=== PATIENT | female | born 1965 | race Caucasian/White ===

== ENCOUNTER 2024-02-15 18:55 | Emergency (ER) | payer BC, SELFPAY ==
[2024-02-15 18:57] VITALS: BP 102/86; PULSE 70; TEMP 36.7; BMI 28.3
[2024-02-15 19:25] VITALS: O2SAT 95
--- NOTE | 2024-02-15 19:25 | CT_ITS ---
The [address] [address] Patient Name: JEAN DANIEL MRN: [id number] date: 1965 Sex: F Assigned Patient Location: ER Current Patient Location: Accession/Order Number: [id number] Exam Date: 02/15/2024 18:45 Report Date: 02/15/2024 20:53 At the request of: WILMA BLACK Procedure: CT abdomen pelvis w con Indication: Diffuse abdominal pain. Comparison: None Procedure: Axial images were made from the diaphragms through the symphysis pubis. No oral contrast was given prior to scanning. Intravenous contrast was given. Dose reduction techniques were achieved by using automated exposure control and/or adjustment of mA and/or kV according to patient size and/or use of iterative reconstruction technique. Findings: Liver/Biliary System: No liver masses. No intrahepatic biliary dilatation. Common bile duct is mildly dilated at pancreatic head measuring 9 mm. No obstructing lesions are seen in the common bile duct. Please correlate with bilirubin level. Pancreas/Spleen: No evidence of acute pancreatitis. Pancreatic duct is not dilated. No pancreatic masses are seen. No splenomegaly or splenic lesions. Kidneys/Adrenals: Normal symmetrical nephrograms. No renal masses. 3 small left renal nonobstructive stones, 3 mm each. No ureteral stones. No hydronephrosis or hydroureter bilaterally. No adrenal nodules. Aorta/Vessels: No evidence of aortic aneurysm. Patent IVC, renal veins, hepatic veins and portal venous system. Bowel/Fluid/Nodes: Dilated small bowel loops in abdomen and pelvis with feces sign seen within suggestive of small bowel obstruction. Transition point difficult to identify. No pneumatosis. Mesenteric edema is seen in abdomen and pelvis. Surgical sutures are seen in the small bowel. Normal appendix. Small mesenteric lymph nodes are seen, probably reactive. Lung bases: Clear. Other findings: No aggressive osseous lesions are seen. Pelvis: Moderate amount of free fluid in the pelvis. Status post hysterectomy. Unremarkable bladder. No pelvic masses or adenopathy. Other Findings: No aggressive osseous lesions are seen. CT/CT abdomen pelvis w con Impression: 1. Dilated small bowel loops in abdomen and pelvis with feces sign seen within suggestive of small bowel obstruction. Transition point is difficult to identify. No pneumatosis. Moderate amount of free fluid in the pelvis. Mesenteric edema is seen in abdomen and pelvis. 2. Mildly dilated common bile duct measuring 9 mm. No obstructing lesions are seen. Please correlate with bilirubin level. 3. 3 small left renal nonobstructive stones, 3 mm each. No hydronephrosis. 4. Small mesenteric lymph nodes are seen, most likely reactive lymph nodes. Electronically authenticated by: MACARENA POWELL Date: 02/15/2024 20:53
--- NOTE | 2024-02-15 19:26 | ED.ABDPAIN1 ---
HPI - Abdominal Pain General Chief Complaint: Abdominal Pain Stated Complaint: Abdominal Pain Time Seen by Provider: 02/15/24 19:12 Source: patient and EMR Mode of arrival: ambulance Limitations: no limitations History of Present Illness HPI narrative: 58-year-old female presents for abdominal pain. It is in the mid abdomen and it started yesterday and was worse today. She has been dry heaving. No constipation or diarrhea or fever or injury. She has had numerous abdominal surgeries. It does not seem that she is ever had a small bowel obstruction. The pain is severe and continuous. Related Data Home Medications ?Medication ?Instructions ?Recorded ?Confirmed albuterol sulfate 90 mcg/actuation 2 puff inhalation QID PRN 02/15/24 02/15/24 aerosol inhaler shortness of breath or wheezing citalopram 20 mg tablet 20 mg PO DAILY 02/15/24 02/15/24 gabapentin 800 mg tablet 800 mg PO .hs 02/15/24 02/15/24 levofloxacin 500 mg tablet 500 mg PO DAILY 02/15/24 02/15/24 levothyroxine 50 mcg tablet 50 mcg PO DAILY 02/15/24 02/15/24 levothyroxine 75 mcg tablet 75 mcg PO DAILY 02/15/24 02/15/24 omeprazole 40 mg capsule,delayed 40 mg PO AC 02/15/24 02/15/24 release tizanidine 4 mg tablet 4 mg PO .hs PRN muscle spasticity 02/15/24 02/15/24 trazodone 150 mg tablet 150 mg PO .hs 02/15/24 02/15/24 Allergies Allergy/AdvReac Type Severity Reaction Status Date / Time No Known Drug Allergies Allergy Verified 02/15/24 19:01 Review of Systems ROS Narrative A ten point review of systems is negative except as noted above. Exam Narrative Exam Narrative: Nurses note and vital signs reviewed and patient is not hypoxic. General: The patient appears well and in no apparent distress. Patient is resting comfortably on cart. Skin: Warm, dry, no pallor noted. There is no rash noted. Head: Normocephalic, atraumatic Eye: Normal conjunctiva, no drainage Ears, Nose, Mouth, and Throat: oral mucosa is moist. Nares patent. Cardiovascular: Regular Rate and Rhythm Respiratory: Patient is in no distress, no accessory muscle use, lungs are clear to auscultation, no wheezing, rales or rhonchi Back: non-tender GI: Bowel sounds are normal. There is no distention. She has diffuse tenderness. No masses. Musculoskeletal: The patient has no evidence of calf tenderness, no pitting edema, symmetrical pulses noted bilaterally Neurological: A&O, normal speech Psychiatric: Cooperative Constitutional Vital Signs, click to edit/add: Last Vital Signs Temp 98.1 F 02/15/24 18:57 Pulse 80 02/15/24 21:57 Resp 18 02/15/24 21:57 BP 115/86 02/15/24 21:57 Pulse Ox 97 02/15/24 21:57 O2 Del Method Room Air 02/15/24 18:57 Course Vital Signs Vital signs: Vital Signs Temperature 98.1 F 02/15/24 18:57 Pulse Rate 70 02/15/24 18:57 Respiratory Rate 22 H 02/15/24 18:57 Blood Pressure 102/86 02/15/24 18:57 Oxygen Delivery Method Room Air 02/15/24 18:57 Temperature 98.1 F 02/15/24 18:57 Pulse Rate 80 02/15/24 21:57 Respiratory Rate 18 02/15/24 21:57 Blood Pressure 115/86 02/15/24 21:57 Pulse Oximetry 97 02/15/24 21:57 Oxygen Delivery Method Room Air 02/15/24 18:57 MDM - Abdominal Pain MDM Narrative Medical decision making narrative: Small bowel obstruction identified. The patient has a history of gastric bypass and I have spoken to Dr. Whelan. He request transfer to larger facility. The patient request to leave the hospital and I have spoken to Dr. Alexis there who accepts the patient. She is stable and agreeable for transfer. Differential Diagnosis Differential diagnosis: Likely abdominal pain, constipation, diverticulitis, gastroenteritis, pancreatitis and small bowel obstruction Lab Data Attestation: I reviewed the patient's lab results. Labs: Lab Results 02/15/24 02/15/24 Range/Units 19:16 20:08 WBC 7.9 (4.0-11.0) 10^3/uL RBC 3.89 L (4.20-5.40) 10^6/uL Hgb 11.7 L (12.0-16.0) g/dL Hct 36.1 (36.0-48.0) % MCV 92.8 (81.0-99.0) fL MCH 30.1 (26.7-34.0) pg MCHC 32.4 (29.9-35.2) g/dL RDW 13.4 (11.0-15.0) % Plt Count 332 (150-450) 10^3/uL MPV 9.0 L (9.5-13.5) fL Neut % (Auto) 55.2 (43.0-75.0) % Lymph % (Auto) 30.4 (20.5-60.0) % [place] % (Auto) 10.0 (1.7-12.0) % Eos % (Auto) 3.7 (0.9-7.0) % Baso % (Auto) 0.6 (0.2-2.0) % Neut # (Auto) 4.4 (1.4-6.5) 10^3/uL Lymph # (Auto) 2.4 (1.2-3.8) 10^3/uL [place] # (Auto) 0.8 (0.3-0.8) 10^3/uL Eos # (Auto) 0.3 (0.0-0.7) 10^3/uL Baso # (Auto) 0.1 (0.0-0.1) 10^3/uL Abs Immat Gran (auto) 0.01 (0.00-0.03) 10^3/uL Imm/Tot Granulo (auto) 0.1 (0.0-0.5) % Sodium 138 (136-145) mmol/L Potassium 3.7 (3.5-5.1) mmol/L Chloride 103 (98-107) mmol/L Carbon Dioxide 27.7 (21.0-32.0) mmol/L Anion Gap 11.0 BUN 22.0 H (7.0-18.0) mg/dL Creatinine 0.84 (0.55-1.02) mg/dL Est GFR ( Amer) >60 (>=60) Est GFR (Non-Af Amer) >60 (>=60) BUN/Creatinine Ratio 26.2 Glucose 102 (74-106) mg/dL Calcium 9.1 (8.5-10.1) mg/dL Total Bilirubin 0.4 (0.2-1.0) mg/dL Direct Bilirubin 0.1 (0.0-0.2) mg/dL AST 22 (15-37) U/L ALT 31 (14-59) U/L Alkaline Phosphatase 47 (46-116) U/L Total Protein 6.7 (6.4-8.2) g/dL Albumin 3.6 (3.4-5.0) g/dL Globulin 3.1 g/dL Albumin/Globulin Ratio 1.2 Amylase 30 (25-115) U/L Lipase 27.0 (16.0-77.0) U/L Urine Color Lt. yellow (YELLOW) Urine Clarity Clear (CLEAR) Urine pH 7.0 (5.0-9.0) Ur Specific [place] 1.010 (1.005-1.025) Urine Protein Negative (NEG/TRACE) mg/dL Urine Glucose (UA) Negative (NEGATIVE) mg/dL Urine Ketones 15 A (NEGATIVE) mg/dL Urine Occult Blood Negative (NEGATIVE) Urine Nitrite Negative (NEGATIVE) Urine Bilirubin Negative (NEGATIVE) Urine Urobilinogen 0.2 (0.2-1.0) EU/dL Ur Leukocyte Esterase Small A (NEGATIVE) Urine RBC None seen (0-2) #/HPF Urine WBC 2-5 A (NONE SEEN) #/HPF Ur Squamous Epith Cells Few A (NONE/RARE) #/LPF Urine Crystals None seen (None Seen) #/HPF Amorphous Sediment Few Urine Bacteria None seen (NONE SEEN) #/HPF Urine Casts None seen (NONE SEEN) #/LPF Urine Mucus None seen (NONE SEEN) Ur Culture Indicated? No Imaging Data CT scan - abdomen: Radiologist's impression: ITS Impressions Abdomen/Pelvis CT 02/15/24 19:25 Impression: 1. Dilated small bowel loops in abdomen and pelvis with feces sign seen within suggestive of small bowel obstruction. Transition point is difficult to identify. No pneumatosis. Moderate amount of free fluid in the pelvis. Mesenteric edema is seen in abdomen and pelvis. 2. Mildly dilated common bile duct measuring 9 mm. No obstructing lesions are seen. Please correlate with bilirubin level. 3. 3 small left renal nonobstructive stones, 3 mm each. No hydronephrosis. 4. Small mesenteric lymph nodes are seen, most likely reactive lymph nodes. Electronically authenticated by: MACARENA POWELL Date: 02/15/2024 20:53 Abdomen X-Ray 05/03/24 21:42 IMPRESSION: Enteric tube could be advanced 5 to 10 cm for optimal positioning. Electronically authenticated by: ISABEL TAYLOR Date: 02/15/2024 22:02 Discharge Plan Discharge Chief Complaint: Abdominal Pain Clinical Impression: Small bowel obstruction Patient Disposition: [facility] Time of Disposition Decision: 22:28 Discharge Location: [facility] Condition: Good Mode of Transportation: EMS
[2024-02-15] MEDS: MORPHINE SULFATE 4 MG/ML VIAL IV (19:32)
[2024-02-15] MEDS: ONDANSETRON PF 4 MG/2 ML VIAL IV (19:33)
[2024-02-15] MEDS: 0.9 % SODIUM CHLORIDE 1,000 ML 1000 ML IV (19:33)
[2024-02-15 19:35] LABS: Basophils Absolute Auto 0.1 10^3/uL (0.0-0.1); Basophils Percent Auto 0.6 % (0.2-2.0); Eosinophils Absolute Auto 0.3 10^3/uL (0.0-0.7); Eosinophils Percent Auto 3.7 % (0.9-7.0); Hematocrit 36.1 % (36.0-48.0); Hemoglobin 11.7 g/dL (12.0-16.0); Immature Granulocytes Abs Auto 0.01 10^3/uL (0.00-0.03); Immature Granulocytes Pct Auto 0.1 % (0.0-0.5); Lymphocytes Absolute Auto 2.4 10^3/uL (1.2-3.8); Lymphocytes Percent Auto 30.4 % (20.5-60.0); Mean Corpuscular HGB Conc 32.4 g/dL (29.9-35.2); Mean Corpuscular Hemoglobin 30.1 pg (26.7-34.0); Mean Corpuscular Volume 92.8 fL (81.0-99.0); Monocytes Absolute Auto 0.8 10^3/uL (0.3-0.8); Neutrophils Absolute Auto 4.4 10^3/uL (1.4-6.5); Neutrophils Percent Auto 55.2 % (43.0-75.0); Platelet Count 332 10^3/uL (150-450); Red Blood Count 3.89 10^6/uL (4.20-5.40); Red Cell Distribution Width 13.4 % (11.0-15.0); White Blood Count 7.9 10^3/uL (4.0-11.0)
[2024-02-15 19:47] LABS: Alanine Aminotransferase 31 U/L (14-59); Albumin Globulin Ratio 1.2; Albumin Level 3.6 g/dL (3.4-5.0); Alkaline Phosphatase 47 U/L (46-116); Amylase 30 U/L (25-115); Aspartate Amino Transferase 22 U/L (15-37); BUN Creatinine Ratio 26.2; Bilirubin Direct 0.1 mg/dL (0.0-0.2); Bilirubin Total 0.4 mg/dL (0.2-1.0); Calcium 9.1 mg/dL (8.5-10.1); Carbon Dioxide 27.7 mmol/L (21.0-32.0); Chloride 103 mmol/L (98-107); Estimated GFR (African America >60 (>=60); Estimated GFR (Non-African Ame >60 (>=60); Globulin 3.1 g/dL; Glucose 102 mg/dL (74-106); Potassium 3.7 mmol/L (3.5-5.1); Sodium 138 mmol/L (136-145); Total Protein 6.7 g/dL (6.4-8.2)
[2024-02-15 20:13] LABS: Bilirubin Urine NEGATIVE (NEGATIVE); Blood Urine NEGATIVE (NEGATIVE); Clarity Urine CLEAR (CLEAR); Color Urine LT. YELLOW (YELLOW); Glucose Urine UA NEGATIVE (NEGATIVE); Ketones Urine 15 mg/dL (NEGATIVE); Leukocyte Esterase Urine SMALL (NEGATIVE); Nitrite Urine NEGATIVE (NEGATIVE); Protein Urine NEGATIVE (NEG/TRACE); Urobilinogen Urine 0.2 EU/dL (0.2-1.0)
[2024-02-15 20:20] LABS: Amorphous Sediment Urine FEW; Bacteria Urine NONE SEEN #/HPF (NONE SEEN); Crystals Seen? None Seen #/HPF (None Seen); Mucus Urine NONE SEEN (NONE SEEN); RBC Urine NONE SEEN #/HPF (0-2); Squamous Epithelial Cell Urine FEW #/LPF (NONE/RARE)
[2024-02-15 20:21] LABS: Cast Seen? NONE SEEN #/LPF (NONE SEEN); Urine Culture Indicated NO
[2024-02-15 20:49] VITALS: BP 128/66
[2024-02-15] MEDS: HYDROMORPHONE HCL 1 MG/ML CARTRIDGE IV (21:19)
--- NOTE | 2024-02-15 21:42 | XR_ITS ---
The [address] [address] Patient Name: JEAN DANIEL MRN: [id number] date: 1965 Sex: F Assigned Patient Location: ER Current Patient Location: ER Accession/Order Number: [id number] Exam Date: 02/15/2024 21:48 Report Date: 02/15/2024 22:02 At the request of: WILMA BLACK Procedure: XR abdomen 1V EXAM: XR abdomen 1V CLINICAL INDICATION: NG placement COMPARISON: None TECHNIQUE: 1 supine view(s) of the abdomen FINDINGS: Enteric tube terminates over the gastroesophageal junction region. Bowel: Prominent air-filled small bowel loops in the left hemiabdomen. Peritoneum: No evidence of pneumoperitoneum noting limited evaluation on supine view. Osseous/calcific structures: No abnormal calcifications or osseous abnormalities. XR/XR abdomen 1V IMPRESSION: Enteric tube could be advanced 5 to 10 cm for optimal positioning. Electronically authenticated by: ISABEL TAYLOR Date: 02/15/2024 22:02
[2024-02-15 21:57] VITALS: BP 115/86; PULSE 80; O2SAT 97
[2024-02-15 23:08] VITALS: BP 121/81; PULSE 77; O2SAT 95
[2024-02-16] MEDS: HYDROMORPHONE HCL 1 MG/ML CARTRIDGE IV (00:03)
[2024-02-16] MEDS: ONDANSETRON PF 4 MG/2 ML VIAL IV (00:03)
[2024-02-16 00:16] VITALS: O2SAT 78
[2024-02-16 01:12] VITALS: PULSE 75; O2SAT 98
== END 2024-02-16 01:25 | disposition short-term general hospital (02) ==
PROVIDERS: Emergency Provider Emergency Medicine
DX: K56.609 Unspecified intestinal obstruction, unspecified as to partial versus complete obstruction (principal); Z79.899 Other long term (current) drug therapy; Z79.890 Hormone replacement therapy; Z98.84 Bariatric surgery status
CPT/HCPCS: 36415; 74018; 74177; 80048; 80076; 81001; 82150; 83690; 85025; 96374; 96375; 96376; 99285; J1170; Q9967